=== PATIENT | female | born 1950 | race Two or more races ===

== ENCOUNTER 2016-12-12 09:33 | Day surgery (SDC) | payer OTHER ==
[2016-12-12] MEDS ORDERED: LACTATED RINGERS 1,000 ML IV ONE ×2 (10:00→12:40)
[2016-12-12] MEDS ORDERED: fentaNYL 250 MCG/5 ML VIAL IVP ONE (11:54)
[2016-12-12] MEDS ORDERED: MIDAZOLAM 2 MG/2 ML VIAL IVP ONE (11:54)
== END 2016-12-12 09:34 | disposition home or self-care (01) ==
PROC: 0DBL8ZX Excision of Transverse Colon, Via Natural or Artificial Opening Endoscopic, Diagnostic (ICD-10-PCS; 2016-12-12)
PROC: 0DBP8ZX Excision of Rectum, Via Natural or Artificial Opening Endoscopic, Diagnostic (ICD-10-PCS; principal; 2016-12-12 10:30)
DX: K92.1 Melena (principal); D12.3 Benign neoplasm of transverse colon; K62.1 Rectal polyp; K64.8 Other hemorrhoids; Z88.0 Allergy status to penicillin; Z80.0 Family history of malignant neoplasm of digestive organs; Z80.3 Family history of malignant neoplasm of breast; Z82.49 Family history of ischemic heart disease and other diseases of the circulatory system
CPT/HCPCS: 45380; J3010; J7120

== ENCOUNTER 2017-02-15 07:32 | Outpatient (CLI) | payer MEDICARE ==
[2017-02-15 11:25] LABS: CHOL/HDL RATIO 2.9 (<4.4); CHOLESTEROL 147 mg/dL; HDL CHOLESTEROL 50 mg/dL; LDL/HDL RATIO 1.2 (<4.4); TRIGLYCERIDES 190 mg/dL; VLDL CHOLESTEROL 38 mg/dL
== END 2017-02-15 07:33 | disposition home or self-care (01) ==
LOC: LAB.F 07:32
PROVIDERS: ATTEND Internal Medicine
DX: E78.00 Pure hypercholesterolemia, unspecified (principal)
CPT/HCPCS: 36415; 80061

== ENCOUNTER 2017-03-05 12:39 | Outpatient (CLI) | payer MEDICARE ==
--- NOTE | 2017-03-05 16:06 | DEXA Report ---
DEXA SCAN: 03/05/2017 CLINICAL INDICATION: Postmenopausal. TECHNIQUE: Dual energy x-ray absorptiometry (DXA) was performed on a [employer] system. Regions measured are the AP spine, femoral neck, and, if needed, forearm. COMPARISON: None. In accordance with the International Society for Clinical Densitometry (ISCD) guidelines, data from previous exams may be reanalyzed using current recommendations and techniques. This is done to allow a more accurate basis for comparison with the current study. FINDINGS: The data for the lumbar spine is as follows: REGION BMD (g/cm/cm) T-SCORE Z-SCORE L1 1.196 0.5 1.4 L2 1.203 0.0 0.9 L3 1.290 0.8 1.6 L4 1.294 0.8 1.6 TOTAL 1.251 0.6 1.4 NOTE: All evaluable vertebrae are used for classification. The data for the hip is as follows: REGION BMD (g/cm/cm) T-SCORE Z-SCORE Neck 0.991 -0.3 0.6 TOTAL 1.009 0.0 0.7 NOTE: The femoral neck or total proximal femur, whichever is lowest, is used for classification. IMPRESSION: THE WHO CLASSIFICATION BASED ON THE INTERNATIONAL REFERENCE STANDARD IS NORMAL. THE FRACTURE RISK IS NOT INCREASED. RECOMMENDATION: Patients with diagnosis of osteoporosis or osteopenia should have regular bone mineral density assessment. For those eligible for Medicare, routine testing is allowed once every 2 years. Testing frequency can be increased for patients who have rapidly progressing disease or for those who are receiving medical therapy to restore bone mass. COMMENT: World Health Organization (WHO) definitions for osteoporosis and osteopenia: NORMAL BMD: T-score at -1.0 or higher, fracture risk is low. OSTEOPENIA BMD: T-score between -1.0 and -2.5, fracture risk is increased. OSTEOPOROSIS BMD: T-score at -2.5 or lower, fracture risk high. National Osteoporosis Foundation recommends: 1. Obtain adequate dietary calcium (at least 1200 mg per day) and vitamin D (400 -800 international units per day). 2. Participate, as appropriate, in regular weightbearing and muscle- strengthening exercise. 3. Avoid tobacco use and reduce alcohol and caffeine intake. 4. For more detailed information see the website at www.NOF.org. MTDD
== END 2017-03-05 12:40 | disposition home or self-care (01) ==
LOC: DI 12:39
PROVIDERS: ATTEND Internal Medicine
DX: E28.39 Other primary ovarian failure (principal)
CPT/HCPCS: 77080

== ENCOUNTER 2017-03-21 11:42 | Outpatient (CLI) | payer MEDICARE ==
--- NOTE | 2017-03-22 12:52 | Mammography Report ---
DIGITAL SCREENING MAMMOGRAM: 03/21/2017 CLINICAL INDICATION: A 67-year-old nulliparous patient with family history of breast cancer for scre ening. COMPARISON: 01/2016, 10/2014, 08/2013, 06/2012, 05/2011, 03/2010, 02/2009 TECHNIQUE: Routine CC and MLO projections were obtained of the breasts. FINDINGS: Parenchymal tissue within the breasts is predominantly fatty replaced. There are no domina nt masses, suspicious microcalcifications, or secondary signs of malignancy. In comparison to the pre vious studies, there are no significant changes. IMPRESSION: NO MAMMOGRAPHIC EVIDENCE OF MALIGNANCY. NO SIGNIFICANT INTERVAL CHANGES. RECOMMENDATION: Screening mammography is recommended annually. BIRADS category 1 - negative. STANDARD QUALIFYING STATEMENTS 1. This examination was reviewed with the aid of Computed-Aided Detection (CAD). 2. A negative or benign imaging report should not delay biopsy if clinically suspicious findings are present. Consider surgical consultation if warranted. More than 5% of cancers are not identified by i maging. 3. Dense breasts may obscure an underlying neoplasm. JOB #: [id number] EXT JOB #:[id number]
== END 2017-03-21 11:43 | disposition home or self-care (01) ==
LOC: DI.S 11:42
PROVIDERS: ATTEND Internal Medicine
DX: Z12.31 Encounter for screening mammogram for malignant neoplasm of breast (principal); Z80.3 Family history of malignant neoplasm of breast
CPT/HCPCS: 77067

== ENCOUNTER 2018-03-25 08:26 | Outpatient (CLI) | payer MEDICARE ==
[2018-03-25 11:56] LABS: ALBUMIN/GLOBULIN RATIO 1.1 (1.0-2.2); ALKALINE PHOSPHATASE 65 IU/L (42-121); ALT ALANINE AMINOTRANSFERASE 29 IU/L (10-60); AST ASPARTATE AMINOTRANSFERASE 24 IU/L (10-42); BILIRUBIN,TOTAL 0.7 mg/dL (0.2-1.0); BUN - BLOOD UREA NITROGEN 16 mg/dL (6-20); CALCIUM 9.4 mg/dL (8.5-10.3); CARBON DIOXIDE - CO2 28 mmol/L (21-32); CHLORIDE 104 mmol/L (101-111); CHOL/HDL RATIO 3.5 (<4.4); CHOLESTEROL 188 mg/dL; GFR - MDRD 55 (>89); GLUCOSE 102 mg/dL (70-100); HDL CHOLESTEROL 53 mg/dL; LDL CHOLESTEROL,CALCULATED 81 mg/dL; LDL/HDL RATIO 1.5 (<4.4); SODIUM 140 mmol/L (135-145); TOTAL PROTEIN 7.5 g/dL (6.7-8.2); VLDL CHOLESTEROL 54 mg/dL
== END 2018-03-25 08:27 | disposition home or self-care (01) ==
LOC: LAB.F 08:26
PROVIDERS: ATTEND Internal Medicine
DX: E78.00 Pure hypercholesterolemia, unspecified (principal)
CPT/HCPCS: 36415; 80053; 80061; 83721

== ENCOUNTER 2018-04-08 10:19 | Outpatient (CLI) | payer MEDICARE ==
--- NOTE | 2018-04-08 14:40 | DEXA Report ---
Procedure Date: 04/08/2018 Accession Number: [id number] / [id number] Procedure: DEX - Dexa Spine and/or Hip CPT Code: FULL RESULT: EXAM: Dexa Spine and/or Hip DATE: 04/08/2018 11:05 AM CLINICAL HISTORY: OSTEOPENIA TECHNIQUE: Dual energy x-ray absorptiometry (DXA) was performed on a [employer] System. Regions measured are the AP Spine, femoral neck, and if needed forearm. COMPARISON: 03/05/2017. In accordance with the International Society for Clinical Densitometry (ISCD) guidelines, data from previous exams may be reanalyzed using current recommendations and techniques. This is done to allow a more accurate basis for comparison with the current study. FINDINGS: The data for the lumbar spine is as follows: BMD (g/cm/cm) T-SCORE Z-SCORE REGION L1 1.373 2.0 2.7 L2 1.293 0.8 1.5 L3 1.363 1.4 2.1 L4 1.367 1.4 2.1 TOTAL 1.350 1.4 2.1 NOTE: All evaluable vertebrae are used for classification The data for the hip is as follows: BMD (g/cm/cm) T-SCORE Z-SCORE REGION Neck 1.045 0.0 1.0 TOTAL 1.034 0.2 0.8 NOTE: The femoral neck or total proximal femur, whichever is lowest, is used for classification. DXA RESULTS SUMMARY: Spine SCAN DATE AGE BMD CHANGE VS CHANGE VS PREVIOUS PREVIOUS % 04[age]08/2018 [age] 1.350 0.099* 7.9* 03/05/2017 [age] 1.251 * Denotes significant change at the 95% confidence level. Denotes dissimilar scan types or analysis methods. DXA RESULTS SUMMARY: Hip SCAN DATE AGE BMD CHANGE VS CHANGE VS PREVIOUS PREVIOUS % 04[birth year]08/2018 66.2 1.034 0.025 2.5 03/05/2017 67.1 1.009 * Denotes significant change at the 95% confidence level. Denotes dissimilar scan types or analysis methods. IMPRESSION: THE WHO CLASSIFICATION BASED ON THE INTERNATIONAL REFERENCE STANDARD IS NORMAL. THE FRACTURE RISK IS NOT INCREASED. RECOMMENDATION: Patients with diagnosis of osteoporosis or osteopenia should have regular bone mineral density assessment. For those eligible for Medicare, routine testing is allowed once every 2 years. Testing frequency can be increased for patients who have rapidly progressing disease or for those who are receiving medical therapy to restore bone mass. COMMENT: World Health Organization (WHO) definitions for osteoporosis and osteopenia: NORMAL BMD: T-score at -1.0 or higher, fracture risk is low OSTEOPENIA BMD: T-score between -1.0 and -2.5, fracture risk is increased. OSTEOPOROSIS BMD: T-score at -2.5 or lower, fracture risk is high. National Osteoporosis Foundation recommends: 1. Obtain adequate dietary calcium (at least 1200 mg per day) and vitamin D (400-800 international units per day). 2. Participate, as appropriate, in regular weightbearing and muscle-strengthening exercise. 3. Avoid tobacco use and reduce alcohol and caffeine intake. 4. For more detailed information see the website at www.NOF.org.
== END 2018-04-08 10:20 | disposition home or self-care (01) ==
LOC: DI 10:19
PROVIDERS: ATTEND Internal Medicine
DX: M85.80 Other specified disorders of bone density and structure, unspecified site (principal)
CPT/HCPCS: 77080

== ENCOUNTER 2018-12-09 08:00 | Outpatient (CLI) | payer MEDICARE ==
--- NOTE | 2018-12-09 09:10 | Mammography Report ---
Reason: SCREENING MAMMO Procedure Date: 12/09/2018 Accession Number: [id number] / [id number] Procedure: SONDRA - Screening Mammo w/Servando CPT Code: FULL RESULT: EXAM: Screening Mammo w/Servando DATE: 12/09/2018 8:33 AM CLINICAL HISTORY: Routine screening. No reported personal history of breast cancer. Family history of breast cancer in mother at age 76 and grandmother at age 50 TECHNIQUE: Bilateral CC and MLO views were obtained. COMPARISON: 03/21/2017 through 09/11/2013 FINDINGS: The breasts demonstrate scattered fibroglandular densities bilaterally. Bilateral breasts: There are no suspicious masses, calcifications or areas of distortion. Stable low density oval mass with circumscribed margins in the 3:00 left breast, middle depth. IMPRESSION: Benign findings RECOMMENDATION: Routine annual screening unless otherwise clinically indicated. Given family history, patient may be at increased risk for development of breast cancer. Formal risk assessment with a genetic counselor should be considered; patient may benefit from advanced screening practices and/or risk reduction strategies if there is sufficient assessed risk BI-RADS CATEGORY 2: Benign findings STANDARD QUALIFYING STATEMENTS: 1. This examination was not reviewed with the aid of Computer-Aided Detection (CAD). 2. A negative or benign imaging report should not preclude biopsy if clinically suspicious findings are present. 3. Dense breasts may obscure an underlying neoplasm. 4. This examination was reviewed with the aid of 3D breast imaging (tomosynthesis).
== END 2018-12-09 08:01 | disposition home or self-care (01) ==
LOC: DI 08:00
DX: Z12.31 Encounter for screening mammogram for malignant neoplasm of breast (principal); Z80.3 Family history of malignant neoplasm of breast
CPT/HCPCS: 77063; 77067

== ENCOUNTER 2020-04-16 09:13 | Outpatient (CLI) | payer MEDICARE ==
[2020-04-16 15:52] LABS: ALBUMIN 4.4 g/dL (3.2-5.5); ALBUMIN/GLOBULIN RATIO 1.3 (1.0-2.2); ALKALINE PHOSPHATASE 81 IU/L (42-121); ALT ALANINE AMINOTRANSFERASE 39 IU/L (10-60); AST ASPARTATE AMINOTRANSFERASE 28 IU/L (10-42); BILIRUBIN,TOTAL 0.8 mg/dL (0.2-1.0); BUN - BLOOD UREA NITROGEN 14 mg/dL (6-20); CALCIUM 9.5 mg/dL (8.5-10.3); CARBON DIOXIDE - CO2 29 mmol/L (21-32); CHLORIDE 99 mmol/L (101-111); CHOL/HDL RATIO 3.4 (<4.4); CHOLESTEROL 195 mg/dL; GLUCOSE 116 mg/dL (70-100); HDL CHOLESTEROL 58 mg/dL; LDL CHOLESTEROL,CALCULATED 60 mg/dL; SODIUM 141 mmol/L (135-145); TOTAL PROTEIN 7.7 g/dL (6.7-8.2); VLDL CHOLESTEROL 77 mg/dL
== END 2020-04-16 09:14 | disposition home or self-care (01) ==
LOC: LAB.S 09:13
PROVIDERS: ATTEND Internal Medicine
DX: E78.00 Pure hypercholesterolemia, unspecified (principal); R03.0 Elevated blood-pressure reading, without diagnosis of hypertension
CPT/HCPCS: 36415; 80053; 80061; 83721

== ENCOUNTER 2020-08-27 12:53 | Outpatient (CLI) | payer MEDICARE ==
--- NOTE | 2020-08-27 16:15 | DEXA Report ---
PROCEDURE: Dexa Spine and/or Hip INDICATIONS: POSTMENOPAUSAL TECHNIQUE: Dual energy x-ray absorptiometry (DXA) was performed on a [employer] System. Regions measur ed are the AP Spine, femoral neck, and if needed forearm. COMPARISON: DEXA 04/08/2018 FINDINGS: Lumbar Spine: Bone Mineral Density 1.370 g/cm/cm,T score 1.7, compared to 1.4 on prior exam. Left Hip: Bone Mineral Density 1.018 g/cm/cm,T score 0.1, compared to 0.2 on prior exam. Left Femoral Neck: Bone Mineral Density 0.879 g/cm/cm, T score -1.1, compared to 0 on prior exam. (T score greater or equal to -1.0: NORMAL) (T score from -1.1 to -2.4: OSTEOPENIA) (T score less than or equal to -2.5 to: OSTEOPOROSIS) Impression: Minimal osteopenia within the left femoral neck, slightly progressive compared to prior e xam. Patients with diagnosis of osteoporosis or osteopenia should have regular bone mineral density assess ment. For those eligible for Medicare, routine testing is allowed once every 2 years. Testing frequ ency can be increased for patients who have rapidly progressing disease or for those who are receivin g medical therapy to restore bone mass. Reviewed by: Kemi Howell MD on 08/27/2020 4:14 PM PST Approved by: Kemi Howell MD on 08/27/2020 4:14 PM PST Station ID: [id number]
== END 2020-08-27 12:54 | disposition home or self-care (01) ==
LOC: DI 12:53
PROVIDERS: ATTEND Registered Nurse
DX: M85.88 Other specified disorders of bone density and structure, other site (principal)

== ENCOUNTER 2020-11-02 13:02 | Outpatient (CLI) | payer MEDICARE ==
--- NOTE | 2020-11-03 12:29 | Mammography Report ---
BILATERAL DIGITAL SCREENING MAMMOGRAM 3D/2D: 11/02/2020 CLINICAL: Routine screening. Comparison is made to exams dated: 12/09/2018 mammogram, 03/21/2017 mammogram, 02/03/2016 mammogram, mammogram, and 09/11/2013 mammogram - [facility]. There are scattered fibr oglandular elements in both breasts. No significant masses, calcifications, or other findings are seen in either breast. There has been no significant interval change. IMPRESSION: NEGATIVE There is no mammographic evidence of malignancy. A 1 year screening mammogram is recommended. This exam was interpreted at Station ID: [id number]. NOTE: For mammograms, a report in lay terms will be sent to the patient. Approximately 15% of breast malignancies will not be visualized mammographically. In the management of a palpable breast mass, a negative mammogram must not discourage biopsy of a clinically suspicious lesion. Electronically Signed By: Ruddy Waite M.D. slc/penrad:11/02/2020 17:21:29 ACR BI-RADS Category 1: Negative 3341F PARENCHYMAL PATTERN: (A) - The breast(s) demonstrate(s) scattered fibroglandular densities. BI-RADS CATEGORY: (1) - 1 RECOMMENDATION: (ANNUAL) - Recommend routine annual screening mammography. [id number] 1 year screening LATERALITY: (B)
== END 2020-11-02 13:03 | disposition home or self-care (01) ==
LOC: DI.S 13:02
PROVIDERS: ATTEND Registered Nurse
DX: Z12.31 Encounter for screening mammogram for malignant neoplasm of breast (principal)

== ENCOUNTER 2021-01-05 09:04 | Outpatient (CLI) | payer MEDICARE ==
[2021-01-05 14:29] LABS: BASOPHILS # (AUTO) 0.1 10^3/uL (0.0-0.1); BASOPHILS % (AUTO) 1.3 %; EOSINOPHILS # (AUTO) 0.2 10^3/uL (0.0-0.7); EOSINOPHILS % (AUTO) 4.4 %; HCT - HEMATOCRIT 42.8 % (37.0-47.0); HGB - HEMOGLOBIN 14.2 g/dL (12.0-16.0); LYMPHOCYTES # (AUTO) 1.4 10^3/uL (1.5-3.5); LYMPHOCYTES % (AUTO) 25.5 %; MEAN CORPUSCULAR HGB CONC 33.2 g/dL (32.0-36.0); MEAN CORPUSCULAR VOLUME 96.4 fL (81.0-99.0); MEAN PLATELET VOLUME 11.6 fL (7.9-10.8); MONOCYTES # (AUTO) 0.4 10^3/uL (0.0-1.0); MONOCYTES % (AUTO) 8.1 %; NEUTROPHILS # (AUTO) 3.3 10^3/uL (1.5-6.6); NEUTROPHILS % (AUTO) 60.3 %; PLT - PLATELET COUNT 287 10^3/uL (130-450); RED BLOOD COUNT 4.44 10^6/uL (4.20-5.40); RED CELL DISTRIBUTION WIDTH 13.2 % (12.0-15.0); WHITE BLOOD COUNT 5.4 x10^3/uL (4.8-10.8)
[2021-01-05 14:42] LABS: CALCIUM 9.6 mg/dL (8.5-10.3); CREATININE 0.9 mg/dL (0.4-1.0); POTASSIUM 3.9 mmol/L (3.5-5.0)
[2021-01-05 20:21] LABS: ESTIMATED AVERAGE GLUCOSE 120 mg/dL (70-100); HEMOGLOBIN A1c% 5.8 % (4.27-6.07)
== END 2021-01-05 09:05 | disposition home or self-care (01) ==
LOC: LAB.S 09:04
PROVIDERS: ATTEND Registered Nurse
DX: R73.9 Hyperglycemia, unspecified (principal)
CPT/HCPCS: 36415; 80048; 83036; 85025

== ENCOUNTER 2021-01-20 13:00 | Outpatient (CLI) | payer MEDICARE | END 2021-01-20 13:01 | disposition home or self-care (01) | LOC: RT 13:00 | PROVIDERS: ATTEND Registered Nurse | DX: D86.0 Sarcoidosis of lung (principal) | CPT/HCPCS: 94060; 94727; 94729 ==

== ENCOUNTER 2022-03-03 09:30 | Outpatient (CLI) | payer MEDICARE ==
[2022-03-03 15:57] LABS: BASOPHILS # (AUTO) 0.1 10^3/uL (0.0-0.1); BASOPHILS % (AUTO) 1.1 %; EOSINOPHILS # (AUTO) 0.3 10^3/uL (0.0-0.7); EOSINOPHILS % (AUTO) 3.9 %; HCT - HEMATOCRIT 44.2 % (37.0-47.0); HGB - HEMOGLOBIN 14.3 g/dL (12.0-16.0); LYMPHOCYTES # (AUTO) 1.9 10^3/uL (1.5-3.5); MEAN CORPUSCULAR HEMOGLOBIN 32.4 pg (27.0-31.0); MEAN CORPUSCULAR HGB CONC 32.4 g/dL (32.0-36.0); MEAN PLATELET VOLUME 11.4 fL (7.9-10.8); MONOCYTES # (AUTO) 0.5 10^3/uL (0.0-1.0); MONOCYTES % (AUTO) 6.9 %; NEUTROPHILS % (AUTO) 59.8 %; PLT - PLATELET COUNT 304 10^3/uL (130-450); RED BLOOD COUNT 4.42 10^6/uL (4.20-5.40); WHITE BLOOD COUNT 6.7 x10^3/uL (4.8-10.8)
[2022-03-03 16:28] LABS: ALBUMIN 4.3 g/dL (3.2-5.5); ALBUMIN/GLOBULIN RATIO 1.5 (1.0-2.2); ALKALINE PHOSPHATASE 75 IU/L (42-121); ALT ALANINE AMINOTRANSFERASE 37 IU/L (10-60); AST ASPARTATE AMINOTRANSFERASE 29 IU/L (10-42); BILIRUBIN,TOTAL 0.5 mg/dL (0.2-1.0); BUN - BLOOD UREA NITROGEN 18 mg/dL (6-20); CALCIUM 9.7 mg/dL (8.5-10.3); CARBON DIOXIDE - CO2 29 mmol/L (21-32); CHLORIDE 102 mmol/L (101-111); CHOL/HDL RATIO 3.2 (<4.4); CHOLESTEROL 193 mg/dL; CREATININE 0.9 mg/dL (0.4-1.0); GFR - MDRD 62 (>89); GLUCOSE 94 mg/dL (70-100); HDL CHOLESTEROL 61 mg/dL; LDL CHOLESTEROL,CALCULATED 74 mg/dL; LDL/HDL RATIO 1.2 (<4.4); POTASSIUM 4.3 mmol/L (3.5-5.0); SODIUM 139 mmol/L (135-145); TOTAL PROTEIN 7.1 g/dL (6.7-8.2); TRIGLYCERIDES 292 mg/dL; VLDL CHOLESTEROL 58 mg/dL
[2022-03-03 17:38] LABS: THYROID STIMULATING HORMONE 4.05 uIU/mL (0.34-5.60)
[2022-03-03 21:13] LABS: ESTIMATED AVERAGE GLUCOSE 120 mg/dL (70-100); HEMOGLOBIN A1c% 5.8 % (4.27-6.07)
== END 2022-03-03 09:31 | disposition home or self-care (01) ==
LOC: LAB.S 09:30
PROVIDERS: ATTEND Registered Nurse
DX: R73.9 Hyperglycemia, unspecified (principal); R03.0 Elevated blood-pressure reading, without diagnosis of hypertension; E78.00 Pure hypercholesterolemia, unspecified
CPT/HCPCS: 36415; 80053; 80061; 83036; 83721; 84443; 85025

== ENCOUNTER 2022-03-10 15:47 | Outpatient (CLI) | payer MEDICARE ==
--- NOTE | 2022-03-10 16:47 | XRAY Report ---
PROCEDURE: Chest 2 View X-Ray INDICATIONS: COUGH XRAY TECHNIQUE: 2 view(s) of the chest. COMPARISON: None. FINDINGS: Surgical changes and devices: None. Lungs and pleura: No pleural effusions or pneumothorax. Lungs are clear. Mediastinum: Mediastinal contours are normal. Heart size is normal. Bones and chest wall: No suspicious bony abnormalities. Soft tissues appear unremarkable. IMPRESSION: No acute cardiopulmonary findings. Reviewed by: Salima Patel MD on 03/10/2022 4:45 PM PDT Approved by: Salima Patel MD on 03/10/2022 4:45 PM PDT Station ID: [id number]
== END 2022-03-10 15:48 | disposition home or self-care (01) ==
LOC: DI.S 15:47
PROVIDERS: ATTEND Registered Nurse
DX: R05.9 Cough, unspecified (principal)

== ENCOUNTER 2022-04-17 12:35 | Outpatient (CLI) | payer MEDICARE ==
--- NOTE | 2022-04-18 08:47 | Mammography Report ---
BILATERAL DIGITAL SCREENING MAMMOGRAM 3D/2D: 04/17/2022 CLINICAL: Routine screening. Family history of breast cancer. Comparison is made to exams dated: 11/02/2020 mammogram, 12/09/2018 mammogram, and 03/21/2017 mammogram - [facility]. The tissue of both breasts is predominantly fatty. No significant masses, calcifications, or other findings are seen in either breast. There has been no significant interval change. IMPRESSION: NEGATIVE There is no mammographic evidence of malignancy. A 1 year screening mammogram is recommended. Based on the Tyrer Cuzick model (a risk assessment model) the patients lifetime risk is 8.0% and her 10 year risk is 5.1%. According to the ACR, ACS, and NCCN guidelines, an annual breast MRI exam darlene g with mammogram is recommended if the patients lifetime risk is 20% or greater. This exam was interpreted at Station ID: [id number]. NOTE: For mammograms, a report in lay terms will be sent to the patient. Approximately 15% of breast malignancies will not be visualized mammographically. In the management of a palpable breast mass, a negative mammogram must not discourage biopsy of a clinically suspicious lesion. Electronically Signed By: Torrey Garcia M.D. aty/[email or web address]:04/17/2022 17:40:08 ACR BI-RADS Category 1: Negative 3341F PARENCHYMAL PATTERN: (F) - The breast(s) demonstrate(s) diffuse fatty replacement. BI-RADS CATEGORY: (1) - 1 RECOMMENDATION: (ANNUAL) - Recommend routine annual screening mammography. [id number] 1 year screening LATERALITY: (B)
== END 2022-04-17 12:36 | disposition home or self-care (01) ==
LOC: DI.S 12:35
DX: Z12.31 Encounter for screening mammogram for malignant neoplasm of breast (principal); Z80.3 Family history of malignant neoplasm of breast

== ENCOUNTER 2022-12-11 08:00 | Outpatient (CLI) | payer MEDICARE ==
[2022-12-11 14:21] LABS: BILIRUBIN,URINE NEGATIVE (NEGATIVE); GLUCOSE, URINE (UA) NEGATIVE (NEGATIVE); KETONES,URINE (UA) NEGATIVE (NEGATIVE); LEUKOCYTE ESTERASE, URINE MODERATE (NEGATIVE); NITRITE,URINE POSITIVE (NEGATIVE); OCCULT BLOOD,URINE MODERATE (NEGATIVE); PROTEIN,URINE 100 mg/dL (NEGATIVE); UROBILINOGEN,URINE 0.2 (NORMAL) E.U./dL (NORMAL)
[2022-12-11 14:25] LABS: CLARITY,URINE CLOUDY (CLEAR)
[2022-12-11 14:34] LABS: BACTERIA,URINE Moderate /HPF (None Seen); RBC,URINE 0-5 /HPF (0-5); SQUAMOUS EPITHELIAL CELL,UR FEW Squamous (<= Few); WBC,URINE >25 /HPF (0-5)
== END 2022-12-11 23:59 | disposition home or self-care (01) ==
LOC: LAB.S 08:00
PROVIDERS: ATTEND Emergency Medicine
DX: R30.0 Dysuria (principal)
CPT/HCPCS: 81001; 87077; 87086; 87181

== ENCOUNTER 2022-12-27 12:32 | Outpatient (CLI) | payer MEDICARE ==
[2022-12-27 14:38] LABS: BILIRUBIN,URINE NEGATIVE (NEGATIVE); GLUCOSE, URINE (UA) NEGATIVE (NEGATIVE); KETONES,URINE (UA) NEGATIVE (NEGATIVE); LEUKOCYTE ESTERASE, URINE NEGATIVE (NEGATIVE); NITRITE,URINE NEGATIVE (NEGATIVE); OCCULT BLOOD,URINE NEGATIVE (NEGATIVE); PH,URINE 5.5 PH (5.0-7.5); PROTEIN,URINE NEGATIVE (NEGATIVE); UROBILINOGEN,URINE 0.2 (NORMAL) E.U./dL (NORMAL)
[2022-12-27 14:47] LABS: BACTERIA,URINE None Seen /HPF (None Seen); CLARITY,URINE CLEAR (CLEAR); RBC,URINE 0-5 /HPF (0-5); SQUAMOUS EPITHELIAL CELL,UR RARE Squamous (<= Few); WBC,URINE 0-3 /HPF (0-5)
== END 2022-12-27 12:33 | disposition home or self-care (01) ==
LOC: LAB.S 12:32
PROVIDERS: ATTEND Emergency Medicine
DX: Z86.19 Personal history of other infectious and parasitic diseases (principal)
CPT/HCPCS: 81001; 87086

== ENCOUNTER 2023-01-25 08:00 | Outpatient (CLI) | payer MEDICARE | END 2023-01-25 23:59 | disposition home or self-care (01) | LOC: LAB 08:00 | PROVIDERS: ATTEND Physician Assistant | DX: R30.0 Dysuria (principal) | CPT/HCPCS: 87086 ==

== ENCOUNTER 2023-01-30 07:09 | Outpatient (CLI) | payer MEDICARE ==
[2023-01-30 14:59] LABS: BASOPHILS # (AUTO) 0.1 10^3/uL (0.0-0.1); BASOPHILS % (AUTO) 0.9 %; EOSINOPHILS # (AUTO) 0.4 10^3/uL (0.0-0.7); EOSINOPHILS % (AUTO) 5.2 %; HCT - HEMATOCRIT 41.8 % (37.0-47.0); HGB - HEMOGLOBIN 13.5 g/dL (12.0-16.0); LYMPHOCYTES # (AUTO) 2.4 10^3/uL (1.5-3.5); LYMPHOCYTES % (AUTO) 34.9 %; MEAN CORPUSCULAR HEMOGLOBIN 31.8 pg (27.0-31.0); MEAN CORPUSCULAR HGB CONC 32.3 g/dL (32.0-36.0); MEAN CORPUSCULAR VOLUME 98.4 fL (81.0-99.0); MEAN PLATELET VOLUME 10.9 fL (7.9-10.8); MONOCYTES # (AUTO) 0.5 10^3/uL (0.0-1.0); MONOCYTES % (AUTO) 7.5 %; NEUTROPHILS # (AUTO) 3.5 10^3/uL (1.5-6.6); NEUTROPHILS % (AUTO) 51.1 %; PLT - PLATELET COUNT 309 10^3/uL (130-450); RED BLOOD COUNT 4.25 10^6/uL (4.20-5.40); RED CELL DISTRIBUTION WIDTH 13.3 % (12.0-15.0); WHITE BLOOD COUNT 6.8 x10^3/uL (4.8-10.8)
[2023-01-30 15:39] LABS: ALBUMIN 4.1 g/dL (3.2-5.5); ALBUMIN/GLOBULIN RATIO 1.3 (1.0-2.2); ALKALINE PHOSPHATASE 70 IU/L (42-121); ALT ALANINE AMINOTRANSFERASE 27 IU/L (10-60); AST ASPARTATE AMINOTRANSFERASE 23 IU/L (10-42); BILIRUBIN,TOTAL 0.5 mg/dL (0.2-1.0); BUN - BLOOD UREA NITROGEN 16 mg/dL (6-20); CARBON DIOXIDE - CO2 28 mmol/L (21-32); CHLORIDE 105 mmol/L (101-111); CHOL/HDL RATIO 3.6 (<4.4); CHOLESTEROL 192 mg/dL; GFR - MDRD 55 (>89); GLUCOSE 95 mg/dL (70-100); HDL CHOLESTEROL 53 mg/dL; LDL CHOLESTEROL,CALCULATED 84 mg/dL; LDL/HDL RATIO 1.6 (<4.4); POTASSIUM 4.4 mmol/L (3.5-5.0); SODIUM 142 mmol/L (135-145); TOTAL PROTEIN 7.2 g/dL (6.7-8.2); TRIGLYCERIDES 274 mg/dL; VLDL CHOLESTEROL 55 mg/dL
[2023-01-30 15:44] LABS: THYROID STIMULATING HORMONE 5.6 uIU/mL (0.34-5.60)
[2023-01-30 20:27] LABS: ESTIMATED AVERAGE GLUCOSE 126 mg/dL (70-100)
== END 2023-01-30 07:10 | disposition home or self-care (01) ==
LOC: LAB.S 07:09
PROVIDERS: ATTEND Physician Assistant
DX: R30.0 Dysuria (principal); R73.9 Hyperglycemia, unspecified; Z79.899 Other long term (current) drug therapy; R03.0 Elevated blood-pressure reading, without diagnosis of hypertension; E78.00 Pure hypercholesterolemia, unspecified
CPT/HCPCS: 36415; 80053; 80061; 83036; 83721; 84443; 85025

== ENCOUNTER 2023-10-16 13:53 | Outpatient (CLI) | payer MEDICARE ==
--- NOTE | 2023-10-17 11:01 | Mammography Report ---
BILATERAL DIGITAL SCREENING MAMMOGRAM 3D/2D: 10/16/2023 CLINICAL: Routine screening. Family history of breast cancer. Comparison is made to exams dated: 04/17/2022 mammogram, 11/02/2020 mammogram, 12/09/2018 mammogram, 02/23 mammogram, 02/03/2016 mammogram, and 11/19/2014 mammogram - [facility]. Both breasts are almost entirely fatty (category a/<25% glandular tissue). No significant masses, calcifications, or other findings are seen in either breast. There has been no significant interval change. IMPRESSION: NEGATIVE There is no mammographic evidence of malignancy. A 1 year screening mammogram is recommended. Based on the Tyrer Cuzick model (a risk assessment model) the patient's lifetime risk is 7.6% and her 10 year risk is 5.2%. According to the ACR, ACS, and NCCN guidelines, an annual breast MRI exam darlene g with mammogram is recommended if the patients lifetime risk is 20% or greater. This exam was interpreted at Station ID: [id number]. NOTE: For mammograms, a report in lay terms will be sent to the patient. Approximately 15% of breast malignancies will not be visualized mammographically. In the management of a palpable breast mass, a negative mammogram must not discourage biopsy of a clinically suspicious lesion. Electronically Signed By: Alejandrina Forrest M.D., PH.D /penjessee:10/16/2023 23:10:20 letter sent: No_Letter ACR BI-RADS Category 1: Negative 3341F PARENCHYMAL PATTERN: (F) - The breast(s) demonstrate(s) diffuse fatty replacement. BI-RADS CATEGORY: (1) - 1 Mammogram [id number] 1 year screening LATERALITY: (B)
== END 2023-10-16 13:54 | disposition home or self-care (01) ==
LOC: DI.S 13:53
DX: Z12.31 Encounter for screening mammogram for malignant neoplasm of breast (principal); Z80.3 Family history of malignant neoplasm of breast

== ENCOUNTER 2023-12-31 07:25 | Day surgery (SDC) | payer MEDICARE ==
[2023-12-31] MEDS: LACTATED RINGERS 1,000 ML IV ONE (07:29)
--- NOTE | 2023-12-31 08:24 | ANESTHESIA ---
Pre-Anesthesia VS, & Labs - Diagnosis screening, hx polyps - Procedure colonoscopy Vital Signs: Temp Pulse Resp BP Pulse Ox O2 Flow Rate 37.0 C 88 16 183/99 H 98 12/31/23 07:41 12/31/23 07:41 12/31/23 07:41 12/31/23 07:41 12/31/23 07:41 Height: 5 ft 7 in Weight (kg): 87.2 kg Body Mass Index: 30.1 BMI Classification: Obese - NPO >8 hours Last Fluid Intake: am prep - Is Patient ?: No - Lab Results Lab results reviewed: Yes Home Medications and Allergies Home Medications: Ambulatory Orders lisinopriL [Lisinopril] 10 mg PO DAILY 12/28/23 metFORMIN [Glucophage] 500 mg PO ONCE 12/28/23 traZODone [Desyrel] 50 mg PO HS 12/28/23 Atorvastatin [Lipitor] 40 mg DAILY 12/11/16 Citalopram [CeleXA] 20 mg PO DAILY 12/11/16 lisinopriL [Lisinopril] 10 mg PO DAILY 12/28/23 metFORMIN [Glucophage] 500 mg PO ONCE 12/28/23 traZODone [Desyrel] 50 mg PO HS 12/28/23 Allergies/Adverse Reactions: Allergies Allergy/AdvReac Type Severity Reaction Status Date / Time Penicillins Allergy Hives Verified 12/31/23 07:50 Anes History & Medical History - Anesthetic History Anesthesia Complications: reports: No previous complications Family history of Anesthesia Complications: Denies Family history of Malignant Hyperthermia: Denies - Medical History Cardiovascular: reports: Hypertension, High cholesterol Pulmonary: reports: None Gastrointestinal: reports: None Urinary: reports: None Musculoskeletal: reports: None Endocrine/Autoimmune: reports: Other - Surgical History General: reports: Cholecystectomy, Colonoscopy Eyes Ears Nose Throat (EENT): reports: Tonsil/Adenoidectomy Gynecologic: reports: Hysterectomy Exam General: Alert, Oriented x3, Cooperative Dental: WNL Mouth Openin Fingerbreadth Neck Mobility: Normal Mallampati classification: II Thyromental Distance: 4-6 cm Respiratory: Lungs clear, Normal breath sounds, No respiratory distress Cardiovascular: Regular rate Neurological: Normal speech Mental/Cognitive Status: Alert/Oriented X3, Normal for patient Cognitive Status: Within normal limits Plan Anesthesia Type: Total IV Consent for Procedure(s) Verified and Reviewed: Yes Code Status: Attempt Resuscitation ASA classification: 2-Mild systemic disease Is this case an emergency?: No
[2023-12-31] MEDS ORDERED: PROPOFOL 500 MG/50 ML 500 MG/50 ML VIAL ONE (08:31)
[2023-12-31] MEDS: LACTATED RINGERS 400 ML IV ONE (09:34)
[2023-12-31 09:53] VITALS: O2SAT 98
[2023-12-31 10:03] VITALS: BP 139/93
--- NOTE | 2023-12-31 10:57 | ANESTHESIA POST OP EVALUATION ---
Anesthesia Post Eval - Post Anesthesia Eval Vitals: Last Vital Signs Temp 37.0 C 12/31/23 09:59 Pulse 69 12/31/23 09:59 Resp 16 12/31/23 09:59 BP 139/93 H 12/31/23 09:59 Pulse Ox 98 12/31/23 09:59 O2 Flow Rate CV Function Including HR & BP: Stable Pain Control: Satisfactory Nausea & Vomiting: Negative Mental Status: Baseline Respiratory Status: Airway Patent Hydration Status: Satisfactory Anesthesia Complications: None
== END 2023-12-31 07:26 | disposition home or self-care (01) ==
LOC: SDS 07:25
PROVIDERS: ATTEND Surgery
DX: K57.30 Diverticulosis of large intestine without perforation or abscess without bleeding (principal); K64.1 Second degree hemorrhoids; Z86.010 Personal history of colon polyps; I10 Essential (primary) hypertension; E11.9 Type 2 diabetes mellitus without complications; Z79.84 Long term (current) use of oral hypoglycemic drugs; E78.5 Hyperlipidemia, unspecified
CPT/HCPCS: 45378; J7120

== ENCOUNTER 2024-01-02 12:44 | Outpatient (CLI) | payer MEDICARE ==
--- NOTE | 2024-01-02 16:29 | DEXA Report ---
PROCEDURE: Dexa Spine and/or Hip INDICATIONS: POST MENOPAUSAL TECHNIQUE: Dual energy x-ray absorptiometry (DXA) was performed on a [employer] System. Regions measur ed are the AP Spine, femoral neck, and if needed forearm. COMPARISON: DEXA on ! August 27, 2020 FINDINGS: Lumbar Spine: Bone Mineral Density: 1.472 g/cm/cm,T score: 2.4. Since the most recent prior study, there has been a statistically significant increase in bone mineral density by 6.4 percent. Left Femoral Neck: Bone Mineral Density: 0.993 g/cm/cm, T score: -0.3. Left Hip: Bone Mineral Density: 1.014 g/cm/cm,T score: 0. There has been no statistically significant change in bone mineral density since the prior study. (T score greater or equal to -1.0: NORMAL) (T score from -1.1 to -2.4: OSTEOPENIA) (T score less than or equal to -2.5 to: OSTEOPOROSIS) Impression: By WHO criteria, this patient has normal bone density. Interval statistical increase in bone mineral density of the lumbar spine. No statistical interval ch bony in bone mineral density of the hip. Patients with diagnosis of osteoporosis or osteopenia should have regular bone mineral density assess ment. For those eligible for Medicare, routine testing is allowed once every 2 years. Testing frequ ency can be increased for patients who have rapidly progressing disease or for those who are receivin g medical therapy to restore bone mass. Reviewed by: Soledad Pena MD on 01/02/2024 4:27 PM PDT Approved by: Soledad Pena MD on 01/02/2024 4:27 PM PDT Station ID: [id number]
== END 2024-01-02 12:45 | disposition home or self-care (01) ==
LOC: DI 12:44
PROVIDERS: ATTEND Registered Nurse
DX: Z78.0 Asymptomatic menopausal state (principal)